=== PATIENT | female | born 1945 | race Caucasian/White ===

== ENCOUNTER 2019-02-23 15:46 | Emergency (ER) | payer MEDICARE, OTHER ==
[2019-02-23] MEDS ORDERED: NORMAL SALINE 1000 ML 1,000 ML IV ONE (17:59)
--- NOTE | 2019-02-23 18:25 | ER Document Report ---
ED General - General Chief Complaint: Constipation Stated Complaint: DIZZINESS Time Seen by Provider: 02/23/19 17:00 Primary Care Provider: TAMIKA LIN MD [Primary Care Provider] - Follow up as needed Notes: 73-year-old female presents to the emergency department by EMS with chief complaint of dizziness after straining on the toilet and constipation. She has had 4 ER visits in the last 10 days for this problem. Started out about 10 days ago when she had about 5 episodes of diarrhea, went to emergency department, was given Imodium, and she has been constipated since and unable to have a bowel movement. When collecting urine thirst she had an incidental UTI for which she received treatment for on her third ER visit and completed treatment this past Sunday. No headache or neck stiffness, fevers, no dizziness right now, no vision changes, no acute shortness of breath or chest pain, no diaphoresis, no nausea, no vomiting, patient is passing flatus, complains of left lower quadrant and suprapubic abdominal pain, no urinary symptoms, no other complaints. - Related Data Allergies/Adverse Reactions: codeine Allergy (Verified 02/23/19 15:59) latex Allergy (Verified 02/23/19 15:59) Past Medical History - Social History Smoking Status: Unknown if Ever Smoked Family History: None Patient has suicidal ideation: No Patient has homicidal ideation: No Renal/ Medical History: Denies: Hx Peritoneal Dialysis Review of Systems - Review of Systems Constitutional: See HPI EENT: See HPI Cardiovascular: See HPI Respiratory: See HPI Gastrointestinal: See HPI Genitourinary: See HPI Female Genitourinary: No symptoms reported Musculoskeletal: No symptoms reported Skin: No symptoms reported Hematologic/Lymphatic: No symptoms reported Neurological/Psychological: No symptoms reported Physical Exam - Vital signs Vitals: Temp Pulse Resp BP 98.5 F 68 16 115/58 L 02/23/19 15:58 02/23/19 15:58 02/23/19 15:58 02/23/19 15:58 - Notes Notes: PHYSICAL EXAMINATION: Reviewed vital signs and charting by RN GENERAL: Alert, interacts well. No acute distress. HEAD: Normocephalic, atraumatic. EYES: Pupils equal and round. Extraocular movements intact. ENT: Oral mucosa moist, tongue midline. NECK: Full range of motion. Trachea midline. LUNGS: Clear to auscultation bilaterally, no wheezes, rales, or rhonchi. No respiratory distress. HEART: Regular rate and rhythm. No murmur ABDOMEN: soft, left lower quadrant tenderness to palpation. No distention. Bowel sounds present EXTREMITIES: Moves all 4 extremities spontaneously. No edema, No cyanosis. PSYCH: Normal affect, normal mood. SKIN: Warm, dry, normal turgor. No rashes or lesions noted. Course - Re-evaluation Re-evalutation: 02/23/19 18:24 Patient is in no acute distress has some mild abdominal tenderness. Has not tried home enemas. Plan to get a KUB to assess stool burden. I ordered a urinalysis but patient did just finish a round of antibiotics. 02/23/19 18:38 KUB completed show moderate constipation, my impression is there was a large amount of stool in the colon and a large burden in the rectal vault. I intend to cancel the urinalysis as the patient just completed a course of antibiotics. Plan is to give her magnesium citrate and she can go home and take it there. Plan is to have her follow-up with her primary doctor in the next 24 to 48 hours. Stable for discharge - Vital Signs Vital signs: Temp Pulse Resp BP Pulse Ox 98.5 F 68 16 115/58 L 02/23/19 15:58 02/23/19 15:58 02/23/19 15:58 02/23/19 15:58 Discharge - Discharge Clinical Impression: Constipation Qualifiers: Constipation type: unspecified constipation type Qualified Code(s): K59.00 - Constipation, unspecified Condition: Good Disposition: HOME, SELF-CARE Instructions: Constipation ([facility]) Additional Instructions: You were seen today for constipation. I have given you a medication called magnesium citrate and you should drink half of the bottle when you get home. If you do not have a bowel movement in 4 hours drink the other half of the bottle. This should help promote a bowel movement. Also, I would discuss with your primary doctor the discontinuation of 1 of your blood pressure medications. Because you have a history of an arrhythmia lisinopril may be the most reasonable option. Please return to the emergency department if you continue to have syncopal episodes, have severe chest pain, acute shortness of breath, paralysis, numbness, tingling in any of your extremities, or have any other concerning symptoms. Referrals: TAMIKA LIN MD [Primary Care Provider] - Follow up as needed
--- NOTE | 2019-02-23 18:27 | RADIOLOGY REPORT (SQ) ---
EXAM DESCRIPTION: KUB/ABDOMEN (SINGLE VIEW) COMPLETED DATE/TIME: 02/23/2019 6:12 pm REASON FOR STUDY: constipation COMPARISON: None. NUMBER OF VIEWS: One view. TECHNIQUE: Supine radiographic image of the abdomen acquired. LIMITATIONS: None. FINDINGS: BOWEL GAS PATTERN: Normal bowel gas pattern. No dilated loops. CONSTIPATION: moderate CALCIFICATIONS: No suspicious calcifications. SOFT TISSUES: No gross mass or suggestion of organomegaly. HARDWARE: Right sacral nerve stimulator. Cholecystectomy clips. BONES: No acute fracture. No worrisome bone lesions. OTHER: No other significant finding. IMPRESSION: NO RADIOGRAPHIC EVIDENCE FOR ACUTE ABDOMINAL DISEASE. Moderate constipation. TECHNICAL DOCUMENTATION: JOB ID: [id number] [id number] 2010 [employer]- All Rights Reserved Reading location - IP/workstation name: [email or web address]
[2019-02-23] MEDS ORDERED: MAGNESIUM CITRATE 296 ML BOTTLE PO ONE (19:02)
[2019-02-23 19:15] VITALS: BP 148/71
[2019-02-23] MEDS ORDERED: ONDANSETRON ODT 4 MG TAB (6 TAB/ER DISP) PO PRN (19:25)
== END 2019-02-23 19:20 | disposition home or self-care (01) ==
LOC: ER 15:46
DX: R42 Dizziness and giddiness (principal); K59.00 Constipation, unspecified; Z88.6 Allergy status to analgesic agent; Z91.040 Latex allergy status
CPT/HCPCS: 99284; 74018; J3490; A9270